=== PATIENT | male | born 1955 | race Caucasian/White ===

== ENCOUNTER 2019-06-25 13:59 | Emergency (ER) | payer MEDICAID, SELFPAY ==
[~2019-06-25] VITALS: Ht 185.4 cm; Wt 80.8 kg
[2019-06-25] MEDS ORDERED: DIAZEPAM 5 MG TABLET PO ONE (14:30)
[2019-06-25] MEDS ORDERED: KETOROLAC 30 MG/1 ML IM ONE (14:30)
[2019-06-25] MEDS ORDERED: HYDROcodone/APAP 5/325 TABLET PO ONE (14:30)
[2019-06-25] MEDS ORDERED: DIAZEPAM 5 MG TABLET ONE (14:33)
[2019-06-25] MEDS ORDERED: KETOROLAC 30 MG/1 ML ONE (14:34)
[2019-06-25] MEDS ORDERED: HYDROcodone/APAP 5/325 TABLET ONE (14:34)
[2019-06-25 16:05] VITALS: BP 136/88
== END 2019-06-25 16:10 | disposition home or self-care (01) ==
LOC: ED 16:00
DX: S39.012A Strain of muscle, fascia and tendon of lower back, initial encounter (principal); I10 Essential (primary) hypertension; J00 Acute nasopharyngitis [common cold]; X58.XXXA Exposure to other specified factors, initial encounter; Y93.9 Activity, unspecified; Y92.89 Other specified places as the place of occurrence of the external cause; Y99.8 Other external cause status
CPT/HCPCS: 71046; 96372; 99283; J1885

== ENCOUNTER 2019-06-27 14:39 | Emergency (ER) | payer SELFPAY ==
[~2019-06-27] VITALS: Ht 185.4 cm; Wt 78.7 kg
[2019-06-27 14:41] VITALS: BP 149/101
[2019-06-27] MEDS ORDERED: KETOROLAC 30 MG/1 ML ONE (15:16)
[2019-06-27] MEDS ORDERED: DIAZEPAM 5 MG TABLET ONE (15:16)
[2019-06-27] MEDS ORDERED: DIAZEPAM 5 MG TABLET PO ONE (15:30)
[2019-06-27] MEDS ORDERED: KETOROLAC 30 MG/1 ML IM ONE (15:30)
== END 2019-06-27 15:44 | disposition home or self-care (01) ==
LOC: ED 15:40
DX: S39.012A Strain of muscle, fascia and tendon of lower back, initial encounter (principal); J06.9 Acute upper respiratory infection, unspecified; I10 Essential (primary) hypertension; F17.210 Nicotine dependence, cigarettes, uncomplicated; X58.XXXA Exposure to other specified factors, initial encounter; Y93.89 Activity, other specified; Y92.89 Other specified places as the place of occurrence of the external cause; Y99.8 Other external cause status
CPT/HCPCS: 96372; 99283; J1885

== ENCOUNTER 2021-01-14 14:29 | Emergency (ER) | payer MEDICAID ==
[~2021-01-14] VITALS: Ht 182.9 cm; Wt 77.3 kg
--- NOTE | 2021-01-14 15:02 | NUR ---
manager programming: attempted to move patient from lobby to room, no answer in lobby
--- NOTE | 2021-01-14 15:15 | NUR ---
engineer steam: Pt to room via WC from lobby at this time.
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
[2021-01-14 16:03] LABS: BASOPHILS % (AUTO) 1 % (0-1); EOSINOPHILS % (AUTO) 1 % (1-7); LYMPHOCYTES % (AUTO) 9 % (22-44); MEAN CORPUSCULAR HEMOGLOBIN 29.9 pg (27.5-34.5); MEAN CORPUSCULAR HGB CONC 34.1 g/dL (33.2-36.2); MEAN PLATELET VOLUME 9.4 fL (7.4-10.4); MONOCYTES % (AUTO) 15 % (2-9); NEUTROPHILS % (AUTO) 75 % (42-75); PLATELET COUNT 254 x10^3/uL (130-400); RED BLOOD COUNT 4.21 x10^6/uL (4.38-5.82); RED CELL DISTRIBUTION WIDTH 13.2 % (9.4-14.8)
[2021-01-14 16:10] VITALS: BP 127/81
--- NOTE | 2021-01-14 16:11 | NUR ---
PATIENT RESTING IN GURNEY ON PHONE, SIGNIFICANT OTHER AT BEDSIDE. PATIENT CONNECTED TO MONITOR, VSS, CALL LIGHT WITHIN REACH. WAITING FOR LABS TO FINISH RESULTING.
[2021-01-14 16:15] LABS: ALBUMIN 2.9 g/dL (3.4-5.0); ANION GAP 6 mmol/L (5-15); CALCIUM 8.3 mg/dL (8.5-10.1); CHLORIDE 102 mmol/L (98-107)
[2021-01-14 16:16] LABS: CREATININE 1.07 mg/dL (0.7-1.3)
[2021-01-14] MEDS ORDERED: BACITRACIN ZINC OINT 500U/GM, 0.9 GM ONE (16:39)
--- NOTE | 2021-01-14 16:51 | NUR ---
Wound care provided to patient's legs. Patient given discharge instructions and prescriptions and they have confirmed that they understand the instructions. Patient ambulatory with steady gait and use of cane. NAD, all questions answered appropriately, denies additional needs at this time. No personal belongings left in room after discharge.
== END 2021-01-14 16:52 | disposition home or self-care (01) ==
LOC: ED 16:45
DX: S80.812A Abrasion, left lower leg, initial encounter (principal); S80.811A Abrasion, right lower leg, initial encounter; L03.116 Cellulitis of left lower limb; L03.115 Cellulitis of right lower limb; I10 Essential (primary) hypertension; F17.210 Nicotine dependence, cigarettes, uncomplicated; Y04.8XXA Assault by other bodily force, initial encounter; Y93.89 Activity, other specified; Y92.009 Unspecified place in unspecified non-institutional (private) residence as the place of occurrence of the external cause; Y99.8 Other external cause status
CPT/HCPCS: 36415; 80048; 82040; 85025; 99406

== ENCOUNTER 2021-02-21 10:18 | Emergency (ER) | payer MEDICAID ==
[~2021-02-21] VITALS: Ht 182.9 cm; Wt 71.7 kg
[2021-02-21 12:21] LABS: BASOPHILS % (AUTO) 1 % (0-1); EOSINOPHILS % (AUTO) 1 % (1-7); LYMPHOCYTES % (AUTO) 27 % (22-44); MEAN CORPUSCULAR HEMOGLOBIN 29.4 pg (27.5-34.5); MEAN CORPUSCULAR HGB CONC 33.7 g/dL (33.2-36.2); MEAN PLATELET VOLUME 9.4 fL (7.4-10.4); MONOCYTES % (AUTO) 18 % (2-9); NEUTROPHILS % (AUTO) 53 % (42-75); PLATELET COUNT 187 x10^3/uL (130-400); RED BLOOD COUNT 4.14 x10^6/uL (4.38-5.82); RED CELL DISTRIBUTION WIDTH 14.2 % (9.4-14.8)
[2021-02-21 12:32] LABS: ALBUMIN 2.6 g/dL (3.4-5.0); ANION GAP 5 mmol/L (5-15); CALCIUM 7.7 mg/dL (8.5-10.1); CHLORIDE 102 mmol/L (98-107)
[2021-02-21 12:33] LABS: CREATININE 1.13 mg/dL (0.7-1.3)
[2021-02-21 13:58] VITALS: BP 121/80
--- NOTE | 2021-02-21 15:55 | NUR ---
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
[2021-02-21] MEDS ORDERED: IBUPROFEN 600 MG TABLET ONE (16:29)
[2021-02-21] MEDS ORDERED: IBUPROFEN 600 MG TABLET PO ONE (16:30)
== END 2021-02-21 16:35 | disposition home or self-care (01) ==
LOC: ED 16:12
DX: L03.116 Cellulitis of left lower limb (principal); I10 Essential (primary) hypertension; F17.200 Nicotine dependence, unspecified, uncomplicated
CPT/HCPCS: 36415; 80048; 82040; 85025; 99284

== ENCOUNTER 2021-03-05 10:22 | Outpatient (CLI) | payer MEDICAID | END 2021-03-05 23:59 | disposition home or self-care (01) | LOC: WOUND 10:22 | PROVIDERS: ATTEND Internal Medicine | DX: S81.802A Unspecified open wound, left lower leg, initial encounter (principal); L97.222 Non-pressure chronic ulcer of left calf with fat layer exposed; L03.116 Cellulitis of left lower limb; I10 Essential (primary) hypertension; G89.29 Other chronic pain; F17.210 Nicotine dependence, cigarettes, uncomplicated; Z90.49 Acquired absence of other specified parts of digestive tract; X58.XXXA Exposure to other specified factors, initial encounter; Y93.89 Activity, other specified; Y92.89 Other specified places as the place of occurrence of the external cause; Y99.8 Other external cause status | CPT/HCPCS: 97597; 97598; 99215 ==